=== PATIENT | female | born 1970 | race Caucasian/White ===

== ENCOUNTER 2016-12-06 06:55 | Inpatient (IN) | payer MEDICAID, OTHER ==
[~2016-12-06 06:55] MED LIST: Bacitracin/Neomycin/Polymyxin B Oint 28.4 GM Tube ONE; Bupivacaine 0.5%/EPINEPHrine 1:200,000 30 ML SDV ONE; Methylene Blue 50 MG/10 ML Ampule ONE
[2016-12-06] MEDS ORDERED: Propofol 200 MG/20 ML SDV ONE (06:56)
[2016-12-06] MEDS ORDERED: fentaNYL 250 MCG/5 ML SDV ONE (06:56)
[2016-12-06] MEDS ORDERED: Dexamethasone 4 MG/ML SDV ONE (06:56)
[2016-12-06] MEDS ORDERED: Midazolam 1 MG/ML 2 ML SDV ONE (06:56)
[2016-12-06] MEDS ORDERED: Albuterol HFA 18 Gm Inhaler ONE (06:57)
[2016-12-06] MEDS ORDERED: Lactated Ringers 1,000 ML ONE ×2 (06:57→14:43)
[2016-12-06] MEDS ORDERED: Scopolamine 1.5 MG Transdermal Patch ONE (06:57)
[2016-12-06] MEDS ORDERED: Sodium Chloride 0.9% 5 ML Syringe FLUSH PRN (07:00)
[2016-12-06] MEDS ORDERED: Albuterol/Ipratropium 3.0-0.5 MG/3 ML Neb Soln NEB SCH (07:00)
[2016-12-06] MEDS: Lactated Ringers 1,000 ML IV SCH ×3 (07:49→19:20)
[2016-12-06] MEDS ORDERED: Levofloxacin/Dextrose 5%-Water 100 ML IV ONE (08:08)
[2016-12-06] MEDS ORDERED: Propofol 200 MG/20 ML SDV IV ONE (08:11)
[2016-12-06] MEDS ORDERED: Scopolamine 1.5 MG Transdermal Patch TOP ONE (08:11)
[2016-12-06] MEDS ORDERED: fentaNYL 250 MCG/5 ML SDV IV ONE (08:11)
[2016-12-06] MEDS ORDERED: Rocuronium 50 MG/5 ML Vial IV ONE (08:11)
[2016-12-06] MEDS ORDERED: Neostigmine Methylsulfate 10 MG/10 ML MDV IV ONE (08:11)
[2016-12-06] MEDS ORDERED: LEVOFLOXACIN IV ONE (08:11)
[2016-12-06] MEDS ORDERED: Methylene Blue 50 MG/10 ML Ampule ONE ×2 (08:11→08:45)
[2016-12-06] MEDS ORDERED: WATER IV ONE (08:11)
[2016-12-06] MEDS ORDERED: Dexamethasone 4 MG/ML SDV IV ONE (08:11)
[2016-12-06] MEDS ORDERED: Ondansetron 4 MG/2 ML SDV IV ONE (08:11)
[2016-12-06] MEDS ORDERED: Succinylcholine 200 MG/10 ML MDV IV ONE (08:11)
[2016-12-06] MEDS ORDERED: Midazolam 1 MG/ML 2 ML SDV IV ONE (08:11)
[2016-12-06] MEDS ORDERED: DEXTROSE IV ONE (08:11)
[2016-12-06] MEDS ORDERED: Albuterol HFA 18 Gm Inhaler INH ONE (08:11)
[2016-12-06] MEDS ORDERED: Glycopyrrolate 0.2 MG/ML 5 ML MDV IV ONE (08:11)
--- NOTE | 2016-12-06 08:22 | PCM.PN ---
- General Info Date of Service: 12/06/16 - Review of Systems Systems Review Comment:: 46 y/o female with history of abnormal uterine bleeding and pelvic pain here for hysterectomy and bilateral oophorectomy. She is medically stable to proceed. The proposed procedure is discussed with the patient. Expected laparoscopic approach discussed. Possible need for laparotomy also reviewed. Risks such as but not limited to bleeding, infection, organ injury reviewed. Questions answered and she agrees to proceed. Patient had tubal ligation many years ago and refuses test. - Patient Data Vitals - Most Recent: Last Vital Signs Temp 97.2 F 12/06/16 07:10 Pulse 75 12/06/16 07:10 Resp 14 12/06/16 07:10 BP 117/67 12/06/16 07:10 Pulse Ox 99 12/06/16 07:10 Weight - Most Recent: 97.432 kg Lab Results Last 24 Hours: Laboratory Results - last 24 hr 12/02/16 Range/Units 10:15 Crossmatch See Detail Med Orders - Current: Current Medications Albuterol/Ipratropium (Duoneb 3.0-0.5 Mg/3 Ml) [address] [facility] Last Admin: 12/06/16 07:48 Dose: 3 ml Lactated Ringer's (Ringers, Lactated) 1,000 mls @ 50 mls/hr IV ASDIRECTED [facility] Last Admin: 12/06/16 07:49 Dose: 50 mls/hr Sodium Chloride (Syrex Flush) 5 ml FLUSH Q8HR PRN PRN Reason: Keep Vein Open Discontinued Medications Albuterol (Ventolin Hfa) Confirm Administered Dose 18 gm .ROUTE .STK-MED ONE Stop: 12/06/16 06:58 Bupivacaine HCl/Epinephrine Bitart (Marcaine 0.5%/Epinephrine 1:200,000) Confirm Administered Dose 30 ml .ROUTE .STK-MED ONE Stop: 12/06/16 05:58 Bupivacaine HCl/Epinephrine Bitart (Marcaine 0.5%/Epinephrine 1:200,000) Confirm Administered Dose 30 ml .ROUTE .STK-MED ONE Stop: 12/06/16 06:27 Dexamethasone (Dexamethasone) Confirm Administered Dose 4 mg .ROUTE .STK-MED ONE Stop: 12/06/16 06:57 Fentanyl (Sublimaze) Confirm Administered Dose 250 mcg .ROUTE .STK-MED ONE Stop: 12/06/16 06:57 Lactated Ringer's (Ringers, Lactated) Confirm Administered Dose 1,000 mls @ as directed .ROUTE .STK-MED ONE Stop: 12/06/16 06:58 Levofloxacin/Dextrose (Levaquin In D5w 500 Mg/100 Ml) Confirm Administered Dose 100 mls @ as directed IV .STK-MED ONE Stop: 12/06/16 08:09 Methylene Blue (Provayblue) Confirm Administered Dose 50 mg .ROUTE .STK-MED ONE Stop: 12/06/16 06:27 Midazolam HCl (Versed 1 Mg/Ml) Confirm Administered Dose 2 mg .ROUTE .STK-MED ONE Stop: 12/06/16 06:57 Neomycin/Polymyxin/Bacitracin (Triple Antibiotic Oint) Confirm Administered Dose 28.4 gm .ROUTE .STK-MED ONE Stop: 12/06/16 06:33 Propofol (Diprivan 20 Ml) Confirm Administered Dose 200 mg .ROUTE .STK-MED ONE Stop: 12/06/16 06:57 Scopolamine (Transderm-Scop) Confirm Administered Dose 1.5 mg .ROUTE .STK-MED ONE Stop: 12/06/16 06:58 - Problem List Review Problem List Initiated/Reviewed/Updated: Yes - My Orders Last 24 Hours: My Active Orders 12/06/16 07:00 Antiembolic Devices [RC] PER UNIT ROUTINE Patient to Empty Bladder [RC] ASDIRECTED Peripheral IV Care [RC] . DIRECTED Verify Patient Consent Obtain [RC] ASDIRECTED Lactated Ringers [Ringers, Lactated] 1,000 ml IV ASDIRECTED Sodium Chloride 0.9% [Syrex Flush] 5 ml FLUSH Q8HR PRN Peripheral IV Insertion Adult [OM.PC] Routine Sequential Compression Device [OM.PC] Routine 12/06/16 Breakfast Nothing Per Oral Diet [DIET] - Assessment Assessment:: Abnormal Uterine Bleeding - Plan Plan:: UBALDO with BSO
[2016-12-06] MEDS ORDERED: Bupivacaine 0.5%/EPINEPHrine 1:200,000 30 ML SDV INFILT ONE ×2 (08:45)
[2016-12-06] MEDS ORDERED: Bacitracin/Neomycin/Polymyxin B Oint 0.9 GM U/D Packet TOP ONE (08:45)
[2016-12-06] MEDS ORDERED: Bacitracin/Neomycin/Polymyxin B Oint 0.9 GM U/D Packet ONE (10:10)
[2016-12-06] MEDS ORDERED: Morphine 2 MG/ML Syringe IVPUSH PRN (11:09)
[2016-12-06] MEDS ORDERED: Albuterol 0.083% 2.5 MG/3 ML Neb Soln NEB PRN (11:10)
[2016-12-06] MEDS ORDERED: Ondansetron 4 MG/2 ML SDV IVPUSH PRN ×2 (11:10→11:34)
[2016-12-06] MEDS ORDERED: Morphine 4 MG/ML Syringe IVPUSH PRN (11:10)
--- NOTE | 2016-12-06 11:33 | PCM.OPNOTE ---
- General Post-Op/Procedure Note Date of Surgery/Procedure: 12/06/16 Operative Procedure(s): Laproscopically Assisted Vaginal Hysterectomy with Bilateral Oophorectomy Findings: Mildly enlarged but smooth walled uterus Moderately enlarged ovaries without mass bilaterally Pre Op Diagnosis: Abnormal Uterine Bleeding. Pelvic Pain Post-Op Diagnosis: Same Anesthesia Technique: General ET Tube Primary Surgeon: Cornelius Doe Superintendent Plant: Tesha Obrien Reason Superintendent Plant Was Necessary: Assist with retraction and exposure and improve efficiency Pathology: Uterus and bilateral adnexa EBL in mLs: 500 Complications: None Condition: Good
[2016-12-06] MEDS ORDERED: Acetaminophen/HYDROcodone 325-5 MG Tab PO PRN (11:34)
[2016-12-06] MEDS ORDERED: Acetaminophen/HYDROcodone 325-10 MG Tab PO PRN (11:43)
[2016-12-06] MEDS: fentaNYL 100 MCG/2 ML SDV IVPUSH PRN ×3 (11:43→12:15)
[2016-12-06] MEDS ORDERED: Ondansetron 4 MG Tab.DIS PO PRN (11:43)
[2016-12-06] MEDS ORDERED: SUMAtriptan 25 MG Tab PO PRN (11:43)
[2016-12-06] MEDS ORDERED: VARENICLINE TARTRATE PO SCH (11:45)
[2016-12-06] MEDS ORDERED: HYDROmorphone 1 MG/ML Syringe IVPUSH PRN (12:32)
[2016-12-06] MEDS ORDERED: HYDROmorphone 1 MG/ML Syringe IVPUSH ONE (12:32)
[2016-12-06] MEDS: Morphine PF 30 MG/30 ML PCA Vial IV SCH (13:29)
[2016-12-06] MEDS ORDERED: Nicotine 7 MG/24 Hr Patch ONE (18:03)
[2016-12-06] MEDS: Nicotine 7 MG/24 Hr Patch TRDERM SCH (18:06)
--- NOTE | 2016-12-07 00:49 | PROC ---
PROVIDER: Cornelius Doe MD HAM PASSER: Tesha Obrien MD REFERRING PHYSICIAN: Ernesto Saez MD PRE-PROCEDURE DIAGNOSIS: Abnormal uterine bleeding and pelvic pain. POST-PROCEDURE DIAGNOSIS: Abnormal uterine bleeding and pelvic pain. PROCEDURE PERFORMED: Laparoscopically assisted vaginal hysterectomy with bilateral salpingo-oophorectomy. INDICATIONS FOR SURGERY: This 46-year-old female has a history of heavy abnormal uterine bleeding for an extended period of time. She is also having a lot of pelvic pain. Conservative measures have not controlled her symptoms well and she comes for a hysterectomy. She also requests that her ovaries be removed. FINDINGS: The patient's uterus was mildly enlarged but has a smooth surface. The ovaries did not appear pathologic, although they are slightly enlarged bilaterally. DESCRIPTION OF PROCEDURE: The patient was taken to the operating room, she was given general endotracheal anesthesia, placed in a dorsal lithotomy position, and the abdomen and perineum were sterilely prepped and draped. The patient was straight cath'd to evacuate her bladder. A small stab wound incision was made just below the umbilicus through which a Veress needle was inserted and pneumoperitoneum via that needle to a pressure of 15 mmHg was achieved with carbon dioxide. The Veress needle was then replaced with a 5-mm trocar into which the 5-mm zero-degree laparoscopic camera was inserted. Under direct visualization, 12-mm trocars were placed in the right and left lower abdomen. All trocar sites were infiltrated with Marcaine prior to incision. An intraabdominal inspection was carried out and attention was turned to the pelvis. The right adnexum was exposed and an Endo-GENNA with 2.5-mm staple length was fired across the right infundibulopelvic ligament. A second firing was then carried out across the round ligament and upper portion of the broad ligament. The left adnexum was then exposed, this did require some sharp dissection to take down the mesenteric adhesions to the left side of the uterus, but once these had been freed, the adnexa was adequately exposed and an Endo-GENNA was fired across the left infundibulopelvic ligament. A second firing was then carried across the left round ligament and upper portion of the broad ligament. The peritoneum overlying the bladder adjacent to the uterus was then incised and an additional firing of the Endo-GENNA on both sides was carried out to divide a little bit more of the broad ligament bilaterally. Attention was then turned to the vaginal opening. A weighted speculum was placed and secured in position. The cervix was exposed and the mucosa was inscribed with cautery circumferentially around the cervix. The posterior vaginal wall was then opened into the peritoneal cavity just posterior to the uterus and the right and the left uterosacral ligaments were clamped, divided, and secured with 0 Vicryl sutures. The superior flap was carefully raised using blunt dissection. As this was mobilized, the lateral attachments to the uterus became more exposed and these were serially divided above clamps each one being suture-ligated with 0 Vicryl suture ligatures. Gradually, the lower attachments to the uterus were cleared and the uterine vessels were then able to be exposed; these were also clamped, divided, and securely ligated with 0 Vicryl suture ligatures bilaterally. With additional mobilization, the anterior bladder flap was able to be fully raised using blunt dissection and the peritoneal cavity entered. The remaining upper attachments of the uterus were then divided and the uterus and adnexa were removed. Careful inspection of the vaginal cuff was carried out, a small amount of oozing on the patient's right side was controlled with a running 3-0 Vicryl suture. Angle sutures of #1 Vicryl were then placed under direct visualization and a Raines stitch was placed. The vaginal cuff was then closed with running #1 Vicryl suture and the Raines stitch is tied. A Frazier catheter was inserted and methylene blue was instilled into the bladder. Careful inspection along the vaginal cuff showed no sign of blue-leaking at this location. Intraabdominal inspection was then carried out laparoscopically. The vaginal cuff and the lateral staple lines were all carefully inspected. There was only a small amount of oozing noted at the vaginal cuff and this was easily controlled with the use of Surgicel. After irrigating the pelvis and with no sign of any complicating process, the pneumoperitoneum was evacuated and the trocars removed under direct visualization. The trocar incisions were irrigated with Betadine and saline solution and then these trocar sites were closed by approximating the skin with an interrupted 4-0 Vicryl in a subcuticular stitch, Steri-Strips, and benzoin. Antibiotic ointment and sterile dressings were placed. The patient was awakened, extubated, and taken from the operating room in satisfactory condition. ESTIMATED BLOOD LOSS: 500 mL. COMPLICATIONS: None. PROGNOSIS: Good. /[id number]/MODL
[2016-12-07] MEDS: Morphine PF 30 MG/30 ML PCA Vial IV SCH (02:25)
[2016-12-07] MEDS: Lactated Ringers 1,000 ML IV SCH (02:28)
[2016-12-07] MEDS ORDERED: Omeprazole 20 MG Cap.CR PO SCH (07:30)
[2016-12-07] MEDS ORDERED: Diclofenac Sodium 75 MG Tab.EC PO SCH (08:00)
[2016-12-07] MEDS: Nicotine 7 MG/24 Hr Patch TRDERM SCH (08:26)
[2016-12-07] MEDS: Acetaminophen/HYDROcodone 325-5 MG Tab PO PRN ×2 (08:26→12:32)
[2016-12-07] MEDS ORDERED: Morphine 4 MG/ML Syringe IVPUSH PRN (08:46)
--- NOTE | 2016-12-07 08:58 | PCM.PN ---
- General Info Date of Service: 12/07/16 Admission Dx/Problem (Free Text): Laparoscopic vaginal hysterectomy Subjective Update: Ms. Woods states she is doing well this morning. Pain is overall well controlled, but she is having diffuse itching and would like to get off the morphine [employer]; she took Mariposa this morning. Would also like the catheter removed as it is bothering her. Tolerating po intake well without nausea. Passing flatus. Ambulated last night without difficulty, albeit slowly. Breathing comfortably without difficulty. Functional Status: Reports: Pain Controlled, Tolerating Diet, Ambulating. Denies: New Symptoms - Review of Systems General: Denies: Fever Pulmonary: Denies: Shortness of Breath, Cough, Wheezing Cardiovascular: Denies: Chest Pain, Edema, Lightheadedness Gastrointestinal: Reports: Flatus. Denies: Nausea, Vomiting - Patient Data Vitals - Most Recent: Last Vital Signs Temp 36.1 C 12/07/16 07:00 Pulse 79 12/07/16 08:25 Resp 16 12/07/16 07:00 BP 121/63 12/07/16 08:25 Pulse Ox 97 12/07/16 07:00 Weight - Most Recent: 97.432 kg I&O - Last 24 Hours: Intake & Output 12/06/16 12/07/16 12/07/16 22:59 06:59 14:59 Intake Total 1796 1303 Output Total 2200 1300 Balance -404 3 Lab Results Last 24 Hours: Laboratory Results - last 24 hr 12/06/16 12/06/16 12/07/16 Range/Units 12:35 12:35 07:20 Hgb 11.7 L 10.4 L (12.0-16.0) g/dL Hct 35.1 L 31.9 L (37.0-47.0) % Potassium 3.7 (3.3-5.3) mmol/L 12/07/16 Range/Units 07:20 Hgb (12.0-16.0) g/dL Hct (37.0-47.0) % Potassium 4.1 (3.3-5.3) mmol/L Med Orders - Current: Current Medications Hydrocodone Bitart/Acetaminophen (Mariposa 325-5 Mg) 1 - 2 tab PO Q4H PRN PRN Reason: Pain (moderate 4-6) Last Admin: 12/07/16 08:26 Dose: 1 tab Albuterol/Ipratropium (Duoneb 3.0-0.5 Mg/3 Ml) 3 ml NEB ONETIME [facility] Last Admin: 12/06/16 07:48 Dose: 3 ml Diclofenac Sodium (Voltaren) 75 mg PO WITHBREAKFAST [facility] Last Admin: 12/07/16 08:25 Dose: Not Given Docusate Sodium (Colace) 100 mg PO DAILY [facility] Morphine Sulfate (Morphine) 4 mg IVPUSH Q2H PRN PRN Reason: Pain (severe 7-10) Stop: 12/07/16 18:00 Multivitamins/Minerals (Centrum) 1 tab PO DAILY [facility] Last Admin: 12/07/16 08:25 Dose: 1 tab Nicotine (Habitrol) 7 mg TRDERM DAILY [facility] Last Admin: 12/07/16 08:26 Dose: 7 mg Omeprazole (Omeprazole) 20 mg PO ACBREAKFAST [facility] Last Admin: 12/07/16 07:25 Dose: 20 mg Ondansetron HCl (Zofran) 4 mg IVPUSH Q6H PRN PRN Reason: Nausea/Vomiting Ondansetron HCl (Zofran Odt) 4 mg PO Q4H PRN PRN Reason: Nausea Propranolol HCl (Inderal La) 80 mg PO DAILY [facility] Last Admin: 12/07/16 08:25 Dose: 80 mg Sodium Chloride (Syrex Flush) 5 ml FLUSH Q8HR PRN PRN Reason: Keep Vein Open Sumatriptan Succinate (Imitrex) 50 mg PO ASDIRECTED PRN PRN Reason: Headache Discontinued Medications Hydrocodone Bitart/Acetaminophen (Mariposa 325-10 Mg) 1 tab PO Q4H PRN PRN Reason: Pain Albuterol (Ventolin Hfa) Confirm Administered Dose 18 gm .ROUTE .STK-MED ONE Stop: 12/06/16 06:58 Last Admin: 12/06/16 14:23 Dose: Not Given Albuterol (Proventil Neb Soln) 2.5 mg NEB ONETIME PRN PRN Reason: Wheezing Stop: 12/06/16 13:00 Albuterol (Ventolin Hfa) 0 gm INH .STK-MED ONE Stop: 12/06/16 08:12 Bupivacaine HCl/Epinephrine Bitart (Marcaine 0.5%/Epinephrine 1:200,000) Confirm Administered Dose 30 ml .ROUTE .STK-MED ONE Stop: 12/06/16 05:58 Last Admin: 12/06/16 14:21 Dose: Not Given Bupivacaine HCl/Epinephrine Bitart (Marcaine 0.5%/Epinephrine 1:200,000) Confirm Administered Dose 30 ml .ROUTE .STK-MED ONE Stop: 12/06/16 06:27 Last Admin: 12/06/16 14:22 Dose: Not Given Bupivacaine HCl/Epinephrine Bitart (Marcaine 0.5%/Epinephrine 1:200,000) 23 ml INFILT .STK-MED ONE Stop: 12/06/16 08:46 Last Admin: 12/06/16 08:45 Dose: 23 ml Dexamethasone (Dexamethasone) Confirm Administered Dose 4 mg .ROUTE .STK-MED ONE Stop: 12/06/16 06:57 Last Admin: 12/06/16 14:22 Dose: Not Given Dexamethasone (Dexamethasone) 4 mg IV .STK-MED ONE Stop: 12/06/16 08:12 Fentanyl (Sublimaze) Confirm Administered Dose 250 mcg .ROUTE .STK-MED ONE Stop: 12/06/16 06:57 Last Admin: 12/06/16 14:22 Dose: Not Given Fentanyl (Sublimaze) 50 mcg IVPUSH Q5M PRN PRN Reason: Pain Stop: 12/06/16 13:00 Last Admin: 12/06/16 12:15 Dose: 50 mcg Fentanyl (Sublimaze) 250 mcg IV .STK-MED ONE Stop: 12/06/16 08:12 Glycopyrrolate (Robinul) 0.6 mg IV .STK-MED ONE Stop: 12/06/16 08:12 Hydromorphone HCl (Dilaudid) 1 mg IVPUSH ONETIME ONE Stop: 12/06/16 12:33 Last Admin: 12/06/16 12:37 Dose: 1 mg Hydromorphone HCl (Dilaudid) 1 mg IVPUSH Q1H PRN PRN Reason: Pain Stop: 12/06/16 14:00 Lactated Ringer's (Ringers, Lactated) 1,000 mls @ 50 mls/hr IV ASDIRECTED [facility] Last Admin: 12/06/16 12:07 Dose: 50 mls/hr Lactated Ringer's (Ringers, Lactated) Confirm Administered Dose 1,000 mls @ as directed .ROUTE .STK-MED ONE Stop: 12/06/16 06:58 Last Admin: 12/06/16 14:22 Dose: Not Given Levofloxacin/Dextrose (Levaquin In D5w 500 Mg/100 Ml) Confirm Administered Dose 100 mls @ as directed IV .STK-MED ONE Stop: 12/06/16 08:09 Last Admin: 12/06/16 14:23 Dose: Not Given Lactated Ringer's (Ringers, Lactated) 1,000 mls @ 125 mls/hr IV ASDIRECTED [facility] Last Admin: 12/07/16 02:28 Dose: 125 mls/hr Lactated Ringer's (Ringers, Lactated) Confirm Administered Dose 1,000 mls @ as directed .ROUTE .STK-MED ONE Stop: 12/06/16 14:44 Last Admin: 12/06/16 15:59 Dose: Not Given Lactated Ringer's (Ringers, Lactated) 500 ml IRR .STK-MED ONE Stop: 12/06/16 10:46 Last Admin: 12/06/16 10:45 Dose: 500 ml Levofloxacin/Dextrose (Levaquin In D5w 500 Mg/100 Ml) 500 mg IV .STK-MED ONE Stop: 12/06/16 08:12 Methylene Blue (Provayblue) Confirm Administered Dose 50 mg .ROUTE .STK-MED ONE Stop: 12/06/16 06:27 Last Admin: 12/06/16 14:22 Dose: Not Given Methylene Blue (Provayblue) 5 mg .XX .STK-MED ONE Stop: 12/06/16 08:46 Last Admin: 12/06/16 08:45 Dose: 5 mg Methylene Blue (Provayblue) 50 mg .XX .STK-MED ONE Stop: 12/06/16 08:12 Midazolam HCl (Versed 1 Mg/Ml) Confirm Administered Dose 2 mg .ROUTE .STK-MED ONE Stop: 12/06/16 06:57 Last Admin: 12/06/16 14:22 Dose: Not Given Midazolam HCl (Versed 1 Mg/Ml) 2 mg IV .STK-MED ONE Stop: 12/06/16 08:12 Morphine Sulfate (Morphine) 1 - 2 mg IVPUSH Q5M PRN PRN Reason: Pain Stop: 12/06/16 13:00 Morphine Sulfate (Morphine) 4 mg IVPUSH ONETIME PRN PRN Reason: Pain Stop: 12/06/16 13:00 Morphine Sulfate (Morphine [employer] 30 Mg In 30 Ml) 30 mg IV ASDIRECTED [facility] PRN Reason: Protocol Last Admin: 12/07/16 02:25 Dose: 30 mg Neomycin/Polymyxin/Bacitracin (Triple Antibiotic Oint) Confirm Administered Dose 28.4 gm .ROUTE .STK-MED ONE Stop: 12/06/16 06:33 Last Admin: 12/06/16 14:22 Dose: Not Given Neomycin/Polymyxin/Bacitracin (Triple Antibiotic Oint) 1 each TOP .STK-MED ONE Stop: 12/06/16 08:46 Last Admin: 12/06/16 08:45 Dose: 1 each Neostigmine Methylsulfate (Neostigmine Methylsulfate) 3 mg IV .STK-MED ONE Stop: 12/06/16 08:12 Nicotine (Habitrol) Confirm Administered Dose 7 mg .ROUTE .STK-MED ONE Stop: 12/06/16 18:04 Last Admin: 12/06/16 18:08 Dose: Not Given Ondansetron HCl (Zofran) 4 mg IVPUSH ONETIME PRN PRN Reason: Nausea Stop: 12/06/16 13:00 Ondansetron HCl (Zofran) 4 mg IV .STK-MED ONE Stop: 12/06/16 08:12 Propofol (Diprivan 20 Ml) Confirm Administered Dose 200 mg .ROUTE .STK-MED ONE Stop: 12/06/16 06:57 Last Admin: 12/06/16 14:22 Dose: Not Given Propofol (Diprivan 20 Ml) 200 mg IV .STK-MED ONE Stop: 12/06/16 08:12 Rocuronium Keo (Zemuron) 50 mg IV .STK-MED ONE Stop: 12/06/16 08:12 Scopolamine (Transderm-Scop) Confirm Administered Dose 1.5 mg .ROUTE .STK-MED ONE Stop: 12/06/16 06:58 Last Admin: 12/06/16 14:23 Dose: Not Given Scopolamine (Transderm-Scop) 1.5 mg TOP .STK-MED ONE Stop: 12/06/16 08:12 Succinylcholine Chloride (Quelicin) 120 mg IV .STK-MED ONE Stop: 12/06/16 08:12 - Exam General: Alert, Oriented, Cooperative, No Acute Distress HEENT: Mucous Membr. Moist/[place] Neck: Supple Lungs: Clear to Auscultation, Normal Respiratory Effort. No: Crackles, Wheezing Cardiovascular: Regular Rate, Regular Rhythm, No Murmurs GI/Abdominal Exam: Normal Bowel Sounds, Soft, Non-Tender. No: Distended, Guarding, Rigid Extremities: Normal Inspection, No Pedal Edema Peripheral Pulses: 2+: Radial (L), Radial (R) Skin: Warm, Dry Wound/Incisions: Healing Well, Other (Abdominal incisions with bandages overlying with mild dried blood overlying) Psy/Mental Status: Alert, Normal Affect, Normal Mood - Problem List Review Problem List Initiated/Reviewed/Updated: Yes - My Orders Last 24 Hours: My Active Orders 12/07/16 08:46 Morphine 4 mg IVPUSH Q2H PRN 12/07/16 08:50 Remove Frazier Catheter [Urinary Catheter Removal] [RC] Per Unit Routine 12/07/16 09:00 Docusate Sodium [Colace] 100 mg PO DAILY 12/07/16 Breakfast Advance Diet Instructions [DIET] - Plan Plan:: Ms. Woods is doing well on POD #1 s/p laparoscopic assisted vaginal hysterectomy with BSO for abnormal uterine bleeding. Pain currently controlled with morphine [employer], but is causing diffuse itching. D/ c morphine [employer]. Encourage po use of Mariposa with breakthrough use of morphine IV push as needed. Tolerating clear liquids. Saline lock IVF. Advance to regular diet as tolerated. + BS and flatus. Start docusate. Remove Frazier catheter. Encourage ambulation. Hgb 11.7 preop; 10.4 postop. Continue home medications. Will initiate estradiol patch 0.1mg/wk at discharge. Anticipate discharge later today or tomorrow depending on progress.
[2016-12-07] MEDS ORDERED: Propranolol 80 MG Cap.ER PO SCH (09:00)
[2016-12-07] MEDS ORDERED: UBIDECARENONE 100 MG PO SCH (09:00)
[2016-12-07] MEDS ORDERED: Multivitamins with Minerals/Iron/Folic Acid/Lycopene Tab PO SCH (09:00)
[2016-12-07] MEDS ORDERED: Docusate Sodium 100 MG Cap PO SCH (09:00)
[2016-12-07] MEDS ORDERED: ST JOHN S WORT 150 MG PO SCH (09:00)
[2016-12-07 15:24] VITALS: BP 106/63
--- NOTE | 2016-12-09 15:16 | PCM.DCSUM1 ---
Discharge Summary - Hospital Course Free Text/Narrative:: Ms. Woods is a 46yoF admitted for laparoscopic assisted vaginal hysterectomy with BSO for abnormal uterine bleeding. Surgery was performed on by Dr. Reed assisted by Dr. Obrien without complications; see operative note for details. She was doing well on POD#1 and throughout the day was having good control of pain with oral analgesic regimen, tolerating diet, ambulating, and return of bowel function. She was deemed ready for discharge the evening of POD#1 and was discharged on her home medications in addition to estradiol patch and Kingston 5/325 for pain control. She will follow-up in the clinic in 10 days. Discussed return precautions for sooner presentation to care. - Discharge Data Discharge Date: 12/07/16 Discharge Disposition: Home, Self-Care 01 Condition: Good - Patient Summary/Data Operative Procedure(s) Performed: Laproscopically Assisted Vaginal Hysterectomy with Bilateral Oophorectomy - Patient Instructions Diet: Regular Diet as Tolerated Activity: As Tolerated, Cough & Deep Breathe, No Strenuous Activities Showering/Bathing: May Shower Wound/Incision Care: Keep Operative Site/Wound Site Clean and Dry Notify Provider of: Fever, Increased Pain, Swelling and Redness, Drainage, Nausea and/or Vomiting - Discharge Plan Prescriptions/Med Rec: Acetaminophen/HYDROcodone [Kingston 325-5 MG] 1 - 2 tab PO Q6H PRN #30 tablet PRN Reason: Pain Docusate Sodium [Colace] 100 mg PO DAILY PRN #30 cap PRN Reason: Constipation Estradiol [Climara] 1 each TD WEEKLY #4 patch Home Medications: Home Meds Acetaminophen [Pain & Fever] 500 mg PO BID 12/01/16 [History] Cholecalciferol (Vitamin D3) [Vitamin D3] 1,000 units PO DAILY 12/01/16 [History ] Cyanocobalamin (Vitamin B-12) [B-12] 500 mcg PO DAILY 12/01/16 [History] Diclofenac Sodium [Voltaren] 75 mg PO DAILY 12/01/16 [History] Hydrocodone/Acetaminophen [Hydrocodon-Acetaminophn 10-325] 1 tab PO Q4H PRN 02/05 [History] Ketorolac [Toradol] 10 mg PO Q6H PRN 12/01/16 [History] Multivitamin with Minerals [Multiple Vitamin] 1 tab PO DAILY 12/01/16 [History] Nicotine [Nicoderm CQ] 1 patch TD DAILY 12/01/16 [History] Omeprazole 20 mg PO DAILY 12/01/16 [History] Ondansetron [Zofran ODT] 4 mg PO Q4H PRN 12/01/16 [History] Propranolol [Inderal LA] 80 mg PO DAILY 12/01/16 [History] Rizatriptan Benzoate [Rizatriptan] 10 mg PO ASDIRECTED PRN 12/01/16 [History] Monett's Wort 150 mg PO DAILY 12/01/16 [History] Ubidecarenone [Q-Sorb Co Q-10] 100 mg PO DAILY 12/01/16 [History] Varenicline Tartrate [Chantix] 1 each PO ASDIRECTED 12/01/16 [History] Acetaminophen/HYDROcodone [Kingston 325-5 MG] 1 - 2 tab PO Q6H PRN #30 tablet 12/07 [Rx] Docusate Sodium [Colace] 100 mg PO DAILY PRN #30 cap 12/07/16 [Rx] Estradiol [Climara] 1 each TD WEEKLY #4 patch 12/07/16 [Rx] Referrals: Tesha Obrien MD [Physician] - 12/19/16 2:00 pm (post-op appointment in 10- 14 days) - Discharge Summary/Plan Comment DC Time >30 min.: No - General Info Subjective Update: See progress note from day of discharge. - Patient Data Vitals - Most Recent: Last Vital Signs Temp 36.6 C 12/07/16 15:00 Pulse 64 12/07/16 15:00 Resp 16 12/07/16 15:00 BP 106/63 12/07/16 15:00 Pulse Ox 98 12/07/16 15:00 Weight - Most Recent: 97.432 kg Med Orders - Current: Current Medications Discontinued Medications Hydrocodone Bitart/Acetaminophen (Kingston 325-5 Mg) 1 - 2 tab PO Q4H PRN PRN Reason: Pain (moderate 4-6) Last Admin: 12/07/16 12:32 Dose: 2 tab Hydrocodone Bitart/Acetaminophen (Kingston 325-10 Mg) 1 tab PO Q4H PRN PRN Reason: Pain Albuterol (Ventolin Hfa) Confirm Administered Dose 18 gm .ROUTE .STK-MED ONE Stop: 12/06/16 06:58 Last Admin: 12/06/16 14:23 Dose: Not Given Albuterol (Proventil Neb Soln) 2.5 mg NEB ONETIME PRN PRN Reason: Wheezing Stop: 12/06/16 13:00 Albuterol (Ventolin Hfa) 0 gm INH .STK-MED ONE Stop: 12/06/16 08:12 Albuterol/Ipratropium (Duoneb 3.0-0.5 Mg/3 Ml) 3 ml NEB ONETIME NELDA Last Admin: 12/06/16 07:48 Dose: 3 ml Bupivacaine HCl/Epinephrine Bitart (Marcaine 0.5%/Epinephrine 1:200,000) Confirm Administered Dose 30 ml .ROUTE .STK-MED ONE Stop: 12/06/16 05:58 Last Admin: 12/06/16 14:21 Dose: Not Given Bupivacaine HCl/Epinephrine Bitart (Marcaine 0.5%/Epinephrine 1:200,000) Confirm Administered Dose 30 ml .ROUTE .STK-MED ONE Stop: 12/06/16 06:27 Last Admin: 12/06/16 14:22 Dose: Not Given Bupivacaine HCl/Epinephrine Bitart (Marcaine 0.5%/Epinephrine 1:200,000) 23 ml INFILT .STK-MED ONE Stop: 12/06/16 08:46 Last Admin: 12/06/16 08:45 Dose: 23 ml Dexamethasone (Dexamethasone) Confirm Administered Dose 4 mg .ROUTE .STK-MED ONE Stop: 12/06/16 06:57 Last Admin: 12/06/16 14:22 Dose: Not Given Dexamethasone (Dexamethasone) 4 mg IV .STK-MED ONE Stop: 12/06/16 08:12 Diclofenac Sodium (Voltaren) 75 mg PO WITHBREAKFAST [facility] Last Admin: 12/07/16 08:25 Dose: Not Given Docusate Sodium (Colace) 100 mg PO DAILY [facility] Last Admin: 12/07/16 10:10 Dose: 100 mg Fentanyl (Sublimaze) Confirm Administered Dose 250 mcg .ROUTE .STK-MED ONE Stop: 12/06/16 06:57 Last Admin: 12/06/16 14:22 Dose: Not Given Fentanyl (Sublimaze) 50 mcg IVPUSH Q5M PRN PRN Reason: Pain Stop: 12/06/16 13:00 Last Admin: 12/06/16 12:15 Dose: 50 mcg Fentanyl (Sublimaze) 250 mcg IV .STK-MED ONE Stop: 12/06/16 08:12 Glycopyrrolate (Robinul) 0.6 mg IV .STK-MED ONE Stop: 12/06/16 08:12 Hydromorphone HCl (Dilaudid) 1 mg IVPUSH ONETIME ONE Stop: 12/06/16 12:33 Last Admin: 12/06/16 12:37 Dose: 1 mg Hydromorphone HCl (Dilaudid) 1 mg IVPUSH Q1H PRN PRN Reason: Pain Stop: 12/06/16 14:00 Lactated Ringer's (Ringers, Lactated) 1,000 mls [facility] Last Admin: 12/06/16 12:07 Dose: 50 mls/hr Lactated Ringer's (Ringers, Lactated) Confirm Administered Dose 1,000 mls @ as directed .ROUTE .STK-MED ONE Stop: 12/06/16 06:58 Last Admin: 12/06/16 14:22 Dose: Not Given Levofloxacin/Dextrose (Levaquin In D5w 500 Mg/100 Ml) Confirm Administered Dose 100 mls @ as directed IV .STK-MED ONE Stop: 12/06/16 08:09 Last Admin: 12/06/16 14:23 Dose: Not Given Lactated Ringer's (Ringers, Lactated) 1,000 mls @ 125 [facility]ls[facility] Last Admin: 12/07/16 02:28 Dose: 125 mls/hr Lactated Ringer's (Ringers, Lactated) Confirm Administered Dose 1,000 mls @ as directed .ROUTE .STK-MED ONE Stop: 12/06/16 14:44 Last Admin: 12/06/16 15:59 Dose: Not Given Lactated Ringer's (Ringers, Lactated) 500 ml IRR .STK-MED ONE Stop: 12/06/16 10:46 Last Admin: 12/06/16 10:45 Dose: 500 ml Levofloxacin/Dextrose (Levaquin In D5w 500 Mg/100 Ml) 500 mg IV .STK-MED ONE Stop: 12/06/16 08:12 Methylene Blue (Provayblue) Confirm Administered Dose 50 mg .ROUTE .STK-MED ONE Stop: 12/06/16 06:27 Last Admin: 12/06/16 14:22 Dose: Not Given Methylene Blue (Provayblue) 5 mg .XX .STK-MED ONE Stop: 12/06/16 08:46 Last Admin: 12/06/16 08:45 Dose: 5 mg Methylene Blue (Provayblue) 50 mg .XX .STK-MED ONE Stop: 12/06/16 08:12 Midazolam HCl (Versed 1 Mg/Ml) Confirm Administered Dose 2 mg .ROUTE .STK-MED ONE Stop: 12/06/16 06:57 Last Admin: 12/06/16 14:22 Dose: Not Given Midazolam HCl (Versed 1 Mg/Ml) 2 mg IV .STK-MED ONE Stop: 12/06/16 08:12 Morphine Sulfate (Morphine) 1 - 2 mg IVPUSH Q5M PRN PRN Reason: Pain Stop: 12/06/16 13:00 Morphine Sulfate (Morphine) 4 mg IVPUSH ONETIME PRN PRN Reason: Pain Stop: 12/06/16 13:00 Morphine Sulfate (Morphine Jail Keeper 30 Mg In 30 Ml) 30 mg IV ASDIRECTED [facility] PRN Reason: Protocol Last Admin: 12/07/16 02:25 Dose: 30 mg Morphine Sulfate (Morphine) 4 mg IVPUSH Q2H PRN PRN Reason: Pain (severe 7-10) Stop: 12/07/16 18:00 Multivitamins/Minerals (Centrum) 1 tab PO DAILY [facility] Last Admin: 12/07/16 08:25 Dose: 1 tab Neomycin/Polymyxin/Bacitracin (Triple Antibiotic Oint) Confirm Administered Dose 28.4 gm .ROUTE .STK-MED ONE Stop: 12/06/16 06:33 Last Admin: 12/06/16 14:22 Dose: Not Given Neomycin/Polymyxin/Bacitracin (Triple Antibiotic Oint) 1 each TOP .STK-MED ONE Stop: 12/06/16 08:46 Last Admin: 12/06/16 08:45 Dose: 1 each Neostigmine Methylsulfate (Neostigmine Methylsulfate) 3 mg IV .STK-MED ONE Stop: 12/06/16 08:12 Nicotine (Habitrol) 7 mg TRDERM DAILY [facility] Last Admin: 12/07/16 08:26 Dose: 7 mg Nicotine (Habitrol) Confirm Administered Dose 7 mg .ROUTE .STK-MED ONE Stop: 12/06/16 18:04 Last Admin: 12/06/16 18:08 Dose: Not Given Omeprazole (Omeprazole) 20 mg PO ACBREAKFAST [facility] Last Admin: 12/07/16 07:25 Dose: 20 mg Ondansetron HCl (Zofran) 4 mg IVPUSH ONETIME PRN PRN Reason: Nausea Stop: 12/06/16 13:00 Ondansetron HCl (Zofran) 4 mg IVPUSH Q6H PRN PRN Reason: Nausea/Vomiting Ondansetron HCl (Zofran Odt) 4 mg PO Q4H PRN PRN Reason: Nausea Ondansetron HCl (Zofran) 4 mg IV .STK-MED ONE Stop: 12/06/16 08:12 Propofol (Diprivan 20 Ml) Confirm Administered Dose 200 mg .ROUTE .STK-MED ONE Stop: 12/06/16 06:57 Last Admin: 12/06/16 14:22 Dose: Not Given Propofol (Diprivan 20 Ml) 200 mg IV .STK-MED ONE Stop: 12/06/16 08:12 Propranolol HCl (Inderal La) 80 mg PO DAILY [facility] Last Admin: 12/07/16 08:25 Dose: 80 mg Rocuronium [place] (Zemuron) 50 mg IV .STK-MED ONE Stop: 12/06/16 08:12 Scopolamine (Transderm-Scop) Confirm Administered Dose 1.5 mg .ROUTE .STK-MED ONE Stop: 12/06/16 06:58 Last Admin: 12/06/16 14:23 Dose: Not Given Scopolamine (Transderm-Scop) 1.5 mg TOP .STK-MED ONE Stop: 12/06/16 08:12 Sodium Chloride (Syrex Flush) 5 ml FLUSH Q8HR PRN PRN Reason: Keep Vein Open Succinylcholine Chloride (Quelicin) 120 mg IV .STK-MED ONE Stop: 12/06/16 08:12 Sumatriptan Succinate (Imitrex) 50 mg PO ASDIRECTED PRN PRN Reason: Headache - Exam Physical Findings Comments:: See progress note from day of discharge. *Q Meaningful Use (DIS) - VTE *Q VTE Criteria *Q: - Stroke *Q Stroke Criteria *Q: - AMI *Q AMI Criteria *Q:
== END 2016-12-07 16:50 | disposition home or self-care (01) | DRG 743 ==
LOC: KA.SDS 06:55 → KA.MS 11:00
PROVIDERS: ADMIT Surgery; ATTEND Family Medicine
PROC: 0UT9FZZ Resection of Uterus, Via Natural or Artificial Opening With Percutaneous Endoscopic Assistance (ICD-10-PCS; principal; 2016-12-06)
PROC: 0UT2FZZ Resection of Bilateral Ovaries, Via Natural or Artificial Opening With Percutaneous Endoscopic Assistance (ICD-10-PCS; 2016-12-06)
PROC: 0UT7FZZ Resection of Bilateral Fallopian Tubes, Via Natural or Artificial Opening With Percutaneous Endoscopic Assistance (ICD-10-PCS; 2016-12-06)
DX: N93.9 Abnormal uterine and vaginal bleeding, unspecified (principal); R10.2 Pelvic and perineal pain; Z79.899 Other long term (current) drug therapy
CPT/HCPCS: 36415; 84132; 85014; 85018; 86850; 86900; 86901; 86920; 86922; 94640; A9270-GY; J0330; J1100; J1170; J1956; J2250; J2274; J2405; J2704; J2710; J3010; J3490; J7120

== ENCOUNTER 2017-05-10 06:55 | Day surgery (SDC) | payer MEDICAID ==
[~2017-05-10 06:55] MED LIST changes: -Bacitracin/Neomycin/Polymyxin B Oint 28.4 GM Tube ONE; +Lactated Ringers 1,000 ML ONE; -Methylene Blue 50 MG/10 ML Ampule ONE; +Propofol 200 MG/20 ML SDV ONE; +ceFAZolin 1 GM Vial ONE; +fentaNYL 250 MCG/5 ML SDV ONE
[2017-05-10] MEDS ORDERED: Sodium Chloride 0.9% 5 ML Syringe FLUSH PRN (07:00)
[2017-05-10] MEDS ORDERED: Lactated Ringers 1,000 ML IV SCH (07:00)
[2017-05-10] MEDS ORDERED: Albuterol/Ipratropium 3.0-0.5 MG/3 ML Neb Soln NEB ONE (07:36)
[2017-05-10] MEDS ORDERED: Levofloxacin/Dextrose 5%-Water 100 ML IV ONE (08:17)
[2017-05-10] MEDS ORDERED: WATER IV ONE (08:24)
[2017-05-10] MEDS ORDERED: Glycopyrrolate 0.2 MG/ML 5 ML MDV IV ONE (08:24)
[2017-05-10] MEDS ORDERED: Neostigmine Methylsulfate 10 MG/10 ML MDV IV ONE (08:24)
[2017-05-10] MEDS ORDERED: Dexamethasone 4 MG/ML SDV IV ONE (08:24)
[2017-05-10] MEDS ORDERED: fentaNYL 250 MCG/5 ML SDV IV ONE (08:24)
[2017-05-10] MEDS ORDERED: Lidocaine 1% 50 ML MDV INJECT ONE (08:24)
[2017-05-10] MEDS ORDERED: Ondansetron 4 MG/2 ML SDV IV ONE (08:24)
[2017-05-10] MEDS ORDERED: Rocuronium 50 MG/5 ML Vial IV ONE (08:24)
[2017-05-10] MEDS ORDERED: Morphine 10 MG/ML Syringe IV ONE (08:24)
[2017-05-10] MEDS ORDERED: LEVOFLOXACIN IV ONE (08:24)
[2017-05-10] MEDS ORDERED: Succinylcholine 200 MG/10 ML MDV IV ONE (08:24)
[2017-05-10] MEDS ORDERED: Propofol 200 MG/20 ML SDV IV ONE (08:24)
[2017-05-10] MEDS ORDERED: DEXTROSE IV ONE (08:24)
[2017-05-10] MEDS ORDERED: Albuterol HFA 18 Gm Inhaler INH ONE (08:24)
[2017-05-10] MEDS ORDERED: Morphine 10 MG/ML Syringe ONE (08:33)
[2017-05-10] MEDS ORDERED: Lactated Ringers 1,000 ML ONE (08:36)
[2017-05-10] MEDS ORDERED: Bupivacaine 0.5%/EPINEPHrine 1:200,000 30 ML SDV INFILT ONE (09:12)
--- NOTE | 2017-05-10 10:23 | PCM.PRNOTE ---
- Free Text/Narrative Note: INFORMED CONSENT: This patient is here today because of chronic cholecystitis and cholelithiasis. The operative procedure is laparoscopic cholecystectomy. The operative procedure and risks were discussed including all possible complications including infection, pain, bleeding, bile duct injury, internal organ injury, conversion to open procedure, reoperation, PE, . Anesthetic complications were handled by DISABILITY SERVICES COORDINATOR. The patient understands well and wishes to proceed. OPERATION PERFORMED: Laparoscopic cholecystectomy. PROCEDURE: The patient was kept in the supine position and a satisfactory general anesthetic was administered via endotracheal tube. The abdomen was thoroughly prepped and draped in the usual fashion. The supraumbilical fold was infiltrated with 1 mL of Marcaine 0.5% and a curvilinear incision was made. The incision was deepened through the subcutaneous tissue until we came down upon the fascial layer. We then held the fascial layer with two Darian clamps and then introduced a Verre's needle directly into the abdominal cavity. The position of the needle was ascertained by the aspiration of a small quantity of air, free flow of saline, negative aspiration of blood. We then instilled CO2 gas into the abdominal cavity and developed an abdominal pressure of approximately 15 mm/Hg. At this point we removed the Verre's needle and reintroduced it over a sheath. This was followed by a 5/12.5 trocar and a camera. Inspection revealed a chronically inflamed gallbladder with some omental adhesions. The omental pad was quite thick. The rest of the abdominal contents were normal to visualization. Two 5 mm trocars were placed in the right hypochondriac region, one in the right midclavicular and the second on the anterior clavicle line and a third 11.5 trocar was inserted in the subxiphoid position under direct vision. The patient was then kept in the reverse Trendelenburg position with a slight tilt to the left side. The two ratchets were placed one on the fundus and one at the neck of the gallbladder. Dissection was begun at the neck of the gallbladder and the fat in this area was quite immense. We carefully dissected out the cystic artery and cystic duct separately and encircled both structures at approximately 1 to 1-1/2 cm. We also cleared the cystic plate. The critical view Byron was clearly obtained with a score of 6 out of 6. We ligated each structure separately using endo clips. When ligating the cystic duct we made sure not to encroach upon the common duct in any way. We then used a hook cautery and gently dissected the gallbladder off its bed. The base gallbladder fossa was gently cauterized for additional hemostasis. No additional ducts were identified. The gallbladder was retrieved through the umbilical port. The blair hepatis was thoroughly irrigated with normal saline, most of which was aspirated out. The abdomen was then slowly deflated and prior to removal of the last trocar we completely deflated the abdomen. The trocar sites were washed with Betadine solution and the fascial layer was closed with 0 Polysorb and the skin was closed using 4.0 Polysorb in a subcuticular fashion. We then instilled approximately 20 mL of Marcaine 0.5% with epinephrine between the four sites. Sterile pressure dressings were applied. The patient tolerated the procedure well. There were no operative complications. Sponge, needle, and instrument count were correct.
[2017-05-10] MEDS ORDERED: fentaNYL 100 MCG/2 ML SDV IVPUSH ONE (11:05)
[2017-05-10 13:12] VITALS: BP 103/65
== END 2017-05-10 14:00 | disposition home or self-care (01) ==
LOC: KA.SDS 06:55
PROVIDERS: ATTEND Family Medicine
DX: K81.1 Chronic cholecystitis (principal); K82.8 Other specified diseases of gallbladder; E66.9 Obesity, unspecified; Z88.0 Allergy status to penicillin; Z79.899 Other long term (current) drug therapy; Z68.30 Body mass index [BMI] 30.0-30.9, adult; J30.2 Other seasonal allergic rhinitis
CPT/HCPCS: 94640; A9270-GY; J0330; J1100; J1956; J2270; J2405; J2704; J2710; J3010; J3490; J7120

== ENCOUNTER 2017-10-13 15:35 | Observation (INO) | payer SELFPAY ==
[2017-10-13] MEDS ORDERED: Ondansetron 4 MG/2 ML SDV IVPUSH PRN (15:50)
[2017-10-13] MEDS ORDERED: Sodium Chloride 0.9% 1,500 ML IV ONE (16:00)
[2017-10-13 16:17] VITALS: BP 116/66
[2017-10-13] MEDS ORDERED: Sodium Chloride 0.9% 1,000 ML IV SCH (17:31)
--- NOTE | 2017-10-14 12:14 | PCM.DCSUM1 ---
Discharge Summary - Hospital Course Diagnosis: Stroke: No - Discharge Data Discharge Date: 10/13/17 Discharge Disposition: Home, Self-Care 01 Condition: Fair - Patient Instructions Diet: Usual Diet as Tolerated Activity: As Tolerated Driving: May Drive Today Showering/Bathing: May Shower Notify Provider of: Fever, Increased Pain, Nausea and/or Vomiting Other/Special Instructions: Drink 6-8 glasses water daily; call back if symptoms worsen; follow up with provider next week - Discharge Plan *PRESCRIPTION DRUG MONITORING PROGRAM REVIEWED*: Not Applicable *COPY OF PRESCRIPTION DRUG MONITORING REPORT IN PATIENT RAY: Not Applicable Home Medications: Home Meds Acetaminophen [Pain & Fever] 500 mg PO BID 12/01/16 [History] Cholecalciferol (Vitamin D3) [Vitamin D3] 1,000 units PO DAILY 12/01/16 [History ] Cyanocobalamin (Vitamin B-12) [B-12] 500 mcg PO DAILY 12/01/16 [History] Diclofenac Sodium [Voltaren] 75 mg PO BID 12/01/16 [History] Hydrocodone/Acetaminophen [Hydrocodon-Acetaminophn 10-325] 1 tab PO Q4H PRN 02/05 [History] Ketorolac [Toradol] 10 mg PO Q6H PRN 12/01/16 [History] Multivitamin with Minerals [Multiple Vitamin] 1 tab PO DAILY 12/01/16 [History] Nicotine [Nicoderm CQ] 1 patch TD DAILY 12/01/16 [History] Omeprazole 20 mg PO DAILY 12/01/16 [History] Ondansetron [Zofran ODT] 4 mg PO Q4H PRN 12/01/16 [History] Propranolol [Inderal LA] 80 mg PO DAILY 12/01/16 [History] Rizatriptan Benzoate [Rizatriptan] 10 mg PO ASDIRECTED PRN 12/01/16 [History] Ubidecarenone [Q-Sorb Co Q-10] 100 mg PO DAILY 12/01/16 [History] Varenicline Tartrate [Chantix] 1 each PO ASDIRECTED 12/01/16 [History] Docusate Sodium [Colace] 100 mg PO DAILY PRN #30 cap 12/07/16 [Rx] Albuterol [IJD: Ventolin HFA] 2 puff INH Q4H PRN 05/06/17 [History] Calcium Carb & Citrate/Vit D3 [Calcium + D3 ER Tablet] 1 each PO DAILY 05/06/17 [History] Estradiol [Climara] 1 each TD DAILY 05/06/17 [History] Etodolac [Lodine] 500 mg PO BID 05/06/17 [History] Fexofenadine HCl [Allergy Relief] 400 mg PO BID 05/06/17 [History] Folic Acid 0.8 mg PO DAILY 05/06/17 [History] - Discharge Summary/Plan Comment DC Time >30 min.: No - Patient Data Vitals - Most Recent: Last Vital Signs Temp 98.1 F 10/13/17 15:44 Pulse 83 10/13/17 15:44 Resp 16 10/13/17 15:44 BP 116/66 10/13/17 15:44 Pulse Ox 96 10/13/17 15:44 Weight - Most Recent: 201 lb 11.2 oz I&O - Last 24 hours: Intake & Output 10/13/17 10/14/17 10/14/17 22:59 06:59 14:59 Intake Total 2800 Output Total 600 Balance 2200 Med Orders - Current: Current Medications Discontinued Medications Sodium Chloride (Normal Saline) 1,500 mls @ 999 mls/hr IV .BOLUS ONE Stop: 10/13/17 17:30 Last Admin: 10/13/17 17:22 Dose: 999 mls/hr Sodium Chloride (Normal Saline) 1,000 mls @ 125 mls/hr IV ASDIRECTED [facility] Ondansetron HCl (Zofran) 4 mg IVPUSH Q4H PRN PRN Reason: Nausea/Vomiting
== END 2017-10-13 18:40 | disposition home or self-care (01) ==
LOC: KA.MS 15:35
PROVIDERS: ADMIT Nurse Practitioner Family; ATTEND Family Medicine
DX: A08.4 Viral intestinal infection, unspecified (principal); E86.0 Dehydration; F17.210 Nicotine dependence, cigarettes, uncomplicated; E66.9 Obesity, unspecified; Z68.31 Body mass index [BMI] 31.0-31.9, adult; K21.9 Gastro-esophageal reflux disease without esophagitis; K44.9 Diaphragmatic hernia without obstruction or gangrene; G43.909 Migraine, unspecified, not intractable, without status migrainosus; M19.91 Primary osteoarthritis, unspecified site; Z79.899 Other long term (current) drug therapy; Z88.0 Allergy status to penicillin
CPT/HCPCS: 96360; 96361; G0378; G0379; J7030

== ENCOUNTER 2018-02-24 14:05 | Emergency (ER) | payer SELFPAY ==
[2018-02-24] MEDS ORDERED: Clindamycin HCl 150 MG Cap PO ONE ×2 (14:42→15:00)
--- NOTE | 2018-02-24 15:17 | EDM.PDOC ---
ED HPI GENERAL MEDICAL PROBLEM - General Stated Complaint: RIGHT HAND INFECTION?? Time Seen by Provider: 02/24/18 14:10 Source of Information: Reports: Patient (141) History Limitations: Reports: No Limitations - History of Present Illness INITIAL COMMENTS - FREE TEXT/NARRATIVE: 47-year-old [id number] female presents emergency room for possible postoperative wound infection. Patient status post right carpal tunnel release proximate 4 weeks ago. Patient reports that she's been having purulent drainage , scant amount over the last 30 hours. She denies any fever or chills. She denies significant swelling in her hand. She states she has excellent relief of the numbness and tingling in her right hand. She denies significant pain over the incision site. She's noticed the drainage is at the very distal margin of the incision otherwise incision is healed in nicely. She has no other systemic complaints and is nontoxic appearing. Onset: Gradual Onset Date: 02/23/18 Duration: Hour(s): (30 hours ago) Location: Reports: Upper Extremity, Right Quality: Reports: Ache Severity: Mild Improves with: Reports: None Worsens with: Reports: None Context: Reports: Activity Associated Symptoms: Reports: No Other Symptoms - Related Data Allergies Allergy/AdvReac Type Severity Reaction Status Date / Time Penicillins Allergy Anaphylactic Verified 01/23/18 14:53 Shock Home Meds: Home Meds Cyanocobalamin (Vitamin B-12) [B-12] 500 mcg PO DAILY 12/01/16 [History] Hydrocodone/Acetaminophen [Hydrocodon-Acetaminophn 10-325] 1 tab PO BEDTIME PRN 12/01/16 [History] Multivitamin with Minerals [Multiple Vitamin] 1 tab PO DAILY 12/01/16 [History] Nicotine [Nicoderm CQ] 21 mg TOP DAILY 12/01/16 [History] Albuterol [IJD: Ventolin HFA] 2 puff INH Q4H PRN 05/06/17 [History] Calcium Carb & Citrate/Vit D3 [Calcium + D3 ER Tablet] 1 each PO DAILY 05/06/17 [History] Folic Acid 0.8 mg PO DAILY 05/06/17 [History] Baclofen 20 mg PO TID 01/23/18 [History] Hydrocodone/Acetaminophen [Hydrocodon-Acetaminophen 5-325] 1 - 2 tab PO TID PRN 01/23/18 [History] Acetaminophen [Tylenol] 650 mg PO BID 02/24/18 [History] atorvaSTATin Calcium [Lipitor] 20 mg PO BEDTIME 02/24/18 [History] Past Medical History HEENT History: Reports: Epistaxis, Impaired Vision, Sinusitis Respiratory History: Reports: Asthma, Bronchitis, Recurrent, Pneumonia, Recurrent, SOB, Other (See Below) Other Respiratory History: Every day smoker Gastrointestinal History: Reports: Chronic Diarrhea, GERD, Hemorrhoids, Hiatal Hernia Genitourinary History: Reports: Urinary Incontinence, UTI, Recurrent Other Genitourinary History: born with one kidney ASBESTOS MICROSCOPIST History: Reports: Dysfunctional Uterine Bleeding, Polycystic Ovaries, Musculoskeletal History: Reports: Back Pain, Chronic, Fracture, Fibromyalgia, Other (See Below) Other Musculoskeletal History: restless legs syndrome Neurological History: Reports: Concussion, Headaches, Chronic, Head Trauma, Migraines Psychiatric History: Reports: ADD, ADHD, Addiction, Anxiety, Bipolar, Depression , Eating Disorders, Emotional Problems, Learning Disability, Mood Swings, OCD, Panic Attack, Suicide Attempt, Other (See Below) Other Psychiatric History: Drug addiction Endocrine/Metabolic History: Reports: Obesity/BMI 30+ Hematologic History: Reports: Anesthesia Reaction, B12 Deficiency, Iron Deficiency Dermatologic History: Reports: Urticaria, Other (See Below) Other Dermatologic History: Rash - Infectious Disease History Infectious Disease History: Reports: Chicken Pox - Past Surgical History Head Surgeries/Procedures: Reports: None HEENT Surgical History: Reports: Oral Surgery, Tonsillectomy Respiratory Surgical History: Reports: None GI Surgical History: Reports: None Female Surgical History: Reports: Hysterectomy, Salpingo-Oophorectomy, Tubal Ligation Endocrine Surgical History: Reports: None Neurological Surgical History: Reports: None Musculoskeletal Surgical History: Reports: Arthroscopic Knee, Arthroscopic Procedure, Other (See Below) Other Musculoskeletal Surgeries/Procedures:: Left ankle repair Dermatological Surgical History: Reports: None Social & Family History - Family History Family Medical History: Noncontributory Cardiac: Reports: Afib, Angina, Heart Failure, High Cholesterol, Hypertension, [place] Respiratory: Reports: Asthma, Other (See Below) Other Respiratory Family Hisory: emphysema - Caffeine Use Caffeine Use: Reports: Coffee, Soda, Tea ED ROS GENERAL - Review of Systems Review Of Systems: ROS reveals no pertinent complaints other than HPI. ED EXAM, SKIN/RASH Exam: See Below Exam Limited By: No Limitations General Appearance: Alert, WD/WN, No Apparent Distress Throat/Mouth: Normal Voice Respiratory/Chest: No Respiratory Distress Extremities: Normal Inspection, Other (Right upper extremity shows normal shoulder elbow forearm wrist finger range of motion. She has a well-healing incision over the right palm of the hand. There is a scant amount of drainage from the very distal margin of the incision. This was cultured for anaerobic, aerobic, Gram stain. No significant swelling or redness along the incision site no significant tenderness.). No: Redness Neurological: Alert, Oriented, No Motor/Sensory Deficits Skin: Warm, Dry, Intact, Normal Color, No Rash Lymphatic: No Adenopathy Course - Orders/Labs/Meds Orders: Active Orders 24 hr Category Date Time Status CBC WITH AUTO DIFF [HEME] Stat Lab 02/24/18 15:10 Ordered Meds: Medications Discontinued Medications Generic Name Dose Route Start Last Admin Trade Name Freq PRN Reason Stop Dose Admin Clindamycin HCl 900 mg 02/24/18 14:42 02/24/18 14:49 Cleocin PO 02/24/18 14:43 900 mg ONETIME ONE Administration Departure - Departure Time of Disposition: 15:30 Disposition: Home, Self-Care 01 Condition: Good Clinical Impression: Status post carpal tunnel release Draining postoperative wound Qualifiers: Encounter type: initial encounter Qualified Code(s): T81.89XA - Other complications of procedures, not elsewhere classified, initial encounter - Discharge Information Instructions: Carpal Tunnel Release, Care After, Surgical Site Infections FAQs - MONTEZ Referrals: Nguyễn Trivedi PA-C [Primary Care Provider] - Additional Instructions: 1. Clindamycin 150 mg 3 times a day with food. 2. Follow-up culture results for aerobic, anaerobic and Gram stain in 48 hours with primary care 3. Follow-up with Dr. Saez for postsurgical wound check. 4. Recommending eating probiotic yogurt while taking clindamycin. - My Orders Last 24 Hours: My Active Orders 02/24/18 15:10 CBC WITH AUTO DIFF [HEME] Stat - Assessment/Plan Last 24 Hours: My Active Orders 02/24/18 15:10 CBC WITH AUTO DIFF [HEME] Stat Assessment:: 1. Mild drainage from postoperative surgical incisional site 2. Status post right carpal tunnel release Plan: 1. Clindamycin 150 mg 3 times a day with food. 2. Follow-up culture results for aerobic, anaerobic and Gram stain in 48 hours with primary care 3. Follow-up with Dr. Saez for postsurgical wound check. 4. Recommending eating probiotic yogurt while taking clindamycin.
[2018-02-24 15:25] VITALS: BP 108/64
[2018-02-24] MEDS ORDERED: Clindamycin HCl 150 MG Cap ONE ×2 (15:31→15:33)
== END 2018-02-24 15:40 | disposition home or self-care (01) ==
LOC: KA.ED 14:05
DX: G97.82 Other postprocedural complications and disorders of nervous system (principal); J45.909 Unspecified asthma, uncomplicated; K21.9 Gastro-esophageal reflux disease without esophagitis; F31.9 Bipolar disorder, unspecified; F17.200 Nicotine dependence, unspecified, uncomplicated; Z87.440 Personal history of urinary (tract) infections; Z79.899 Other long term (current) drug therapy; Z88.0 Allergy status to penicillin
CPT/HCPCS: 36415; 85025; 87070; 87205; 99283; A9270-GY

== ENCOUNTER 2018-05-05 10:37 | Emergency (ER) | payer MEDICAID, OTHER ==
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
[2018-05-05 11:02] VITALS: BP 128/73
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
== END 2018-05-05 11:32 | disposition home or self-care (01) ==
LOC: KA.ED 10:37
DX: S61.207A Unspecified open wound of left little finger without damage to nail, initial encounter (principal); W26.8XXA Contact with other sharp object(s), not elsewhere classified, initial encounter; Z88.0 Allergy status to penicillin
CPT/HCPCS: 73140-F4; 99283-25

== ENCOUNTER 2019-11-06 08:03 | Day surgery (SDC) | payer SELFPAY ==
[~2019-11-06 08:03] MED LIST changes: -Bupivacaine 0.5%/EPINEPHrine 1:200,000 30 ML SDV ONE; -Lactated Ringers 1,000 ML ONE; -Propofol 200 MG/20 ML SDV ONE; +Sodium Chloride 0.9% 10 ML Syringe FLUSH PRN; -ceFAZolin 1 GM Vial ONE; -fentaNYL 250 MCG/5 ML SDV ONE
[2019-11-06] MEDS ORDERED: Propofol 200 MG/20 ML SDV IV ONE (08:04)
[2019-11-06] MEDS ORDERED: Midazolam 1 MG/ML 2 ML SDV IV ONE (08:04)
[2019-11-06] MEDS ORDERED: fentaNYL 100 MCG/2 ML SDV IV ONE (08:04)
[2019-11-06] MEDS ORDERED: Lidocaine 1% 50 ML MDV INJECT ONE (08:04)
[2019-11-06] MEDS ORDERED: ceFAZolin 1 GM Vial IV ONE (08:04)
[2019-11-06] MEDS ORDERED: Midazolam 1 MG/ML 2 ML SDV ONE (08:05)
[2019-11-06] MEDS ORDERED: ceFAZolin 1 GM Vial ONE ×2 (08:05→08:43)
[2019-11-06] MEDS ORDERED: Lidocaine 0.5% 50 ML SDV ONE (08:06)
[2019-11-06] MEDS ORDERED: Propofol 200 MG/20 ML SDV ONE ×2 (08:06→08:37)
[2019-11-06] MEDS ORDERED: Bupivacaine 0.5% 30 ML SDV ONE (08:09)
[2019-11-06] MEDS: Lactated Ringers 1,000 ML IV SCH (08:19)
[2019-11-06] MEDS ORDERED: fentaNYL 100 MCG/2 ML SDV ONE (09:06)
[2019-11-06] MEDS ORDERED: Lactated Ringers 1,000 ML ONE (09:07)
[2019-11-06] MEDS: Bupivacaine 0.5% 30 ML SDV INJECT ONE (09:42)
--- NOTE | 2019-11-06 10:16 | PCM.OPNOTE ---
- General Post-Op/Procedure Note Date of Surgery/Procedure: 11/06/19 Operative Procedure(s): Left carpal tunnel release. Pre Op Diagnosis: left carpal tunnel syndrome. Post-Op Diagnosis: as above. Anesthesia Technique: VIVIENNE Primary Surgeon: Matt Saez Condition: Good Free Text/Narrative:: INFORMED CONSENT: Patient is here today for elective left carpal tunnel releas e.. All aspects of this procedure have been discussed with the patient. All possible complications also, including possibility of perforation, infection, pain, bleeding and unknown complications. In the event of perforation patient may need to have abdominal exploration, colon resection, colostomy and even was discussed. Anesthetic complications were handled by anesthesia department. The patient understands fully well. Patient did not have any further questions for me at the end of my interview. The patient wishes for me to proceed. PROCEDURE: Patient was kept in the supine position and the satisfactory Alejandro block anesthesia was administered. The left arm was thoroughly prepped and draped in the usual fashion. The tourniquet was placed to the eft upper arm and a vertical incision was made in the palm directly distal to the distal wrist crease. The skin incision was deepened through the subcutaneous tissue, the palmar aponeurosis was incised and then we came down upon the transverse carpal ligament, which was opened along the line of the skin incision. Extreme care was taken to protect the median nerve below. Careful neurolysis was performed. Approximately 2 cc of Marcaine 0.5% was instilled into the wound and skin was closed using mattress sutures with 3.0 Nylon. The tourniquet was released. A sterile pressure dressing was applied. The patient tolerated the procedure well and was transferred to the recovery room in excellent condition.
[2019-11-06 10:46] VITALS: BP 113/76; PULSE 76
== END 2019-11-06 11:00 | disposition home or self-care (01) ==
LOC: KA.SDS 08:03
PROVIDERS: ATTEND Family Medicine
DX: G56.02 Carpal tunnel syndrome, left upper limb (principal); E66.9 Obesity, unspecified; F17.210 Nicotine dependence, cigarettes, uncomplicated; K44.9 Diaphragmatic hernia without obstruction or gangrene; K21.9 Gastro-esophageal reflux disease without esophagitis; F41.1 Generalized anxiety disorder; G25.81 Restless legs syndrome; G43.909 Migraine, unspecified, not intractable, without status migrainosus; E78.5 Hyperlipidemia, unspecified; Z78.0 Asymptomatic menopausal state; Z79.899 Other long term (current) drug therapy; Z71.6 Tobacco abuse counseling; Z88.0 Allergy status to penicillin; Z68.39 Body mass index [BMI] 39.0-39.9, adult
CPT/HCPCS: 01810; J0690; J2250; J2704; J3010; J3490; J7120

== ENCOUNTER 2020-09-08 15:05 | Emergency (ER) | payer OTHER ==
[2020-09-08 15:23] VITALS: BP 128/76; PULSE 88
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
== END 2020-09-08 16:15 | disposition home or self-care (01) ==
LOC: KA.ED 15:05
DX: T20.22XA Burn of second degree of lip(s), initial encounter (principal); T22.251A Burn of second degree of right shoulder, initial encounter; T21.21XA Burn of second degree of chest wall, initial encounter; E66.9 Obesity, unspecified; Z88.0 Allergy status to penicillin; Z68.30 Body mass index [BMI] 30.0-30.9, adult; Z72.0 Tobacco use; X18.XXXA Contact with other hot metals, initial encounter; Y99.0 Civilian activity done for income or pay
CPT/HCPCS: 16020; 99283; 99283-25

== ENCOUNTER 2022-09-14 21:15 | Emergency (ER) | payer SELFPAY ==
[2022-09-15 01:42] VITALS: BP 108/71; PULSE 91
== END 2022-09-14 22:20 | disposition home or self-care (01) ==
LOC: KA.ED 21:15
DX: L29.9 Pruritus, unspecified (principal); J45.909 Unspecified asthma, uncomplicated; E66.9 Obesity, unspecified; F17.210 Nicotine dependence, cigarettes, uncomplicated; Z68.34 Body mass index [BMI] 34.0-34.9, adult; Z88.0 Allergy status to penicillin; Z88.1 Allergy status to other antibiotic agents
CPT/HCPCS: 99283